=== PATIENT | male | born 1990 | race Two or more races ===

== ENCOUNTER 2018-05-13 09:07 | Emergency (ER) | payer MEDICAID, OTHER ==
[~2018-05-13] VITALS: Ht 170.2 cm; Wt 99.6 kg
[2018-05-13] MEDS ORDERED: SODIUM CHLORIDE FLUSH 10ML SYR IVF ONE (10:00)
[2018-05-13] MEDS ORDERED: SUMATRIPTAN 6MG/0.5ML SQ ONE ×2 (10:00→10:04)
[2018-05-13] MEDS ORDERED: SODIUM CHLORIDE 0.9% 1,000ML IVBOLUS ONE (10:00)
[2018-05-13] MEDS ORDERED: ONDANSETRON 2MG/ML, 2ML IVPush ONE (10:00)
[2018-05-13] MEDS ORDERED: KETOROLAC 30 MG/1 ML IVPush ONE ×2 (10:00)
[2018-05-13] MEDS ORDERED: ONDANSETRON 2MG/ML, 2ML ONE (10:04)
[2018-05-13] MEDS ORDERED: KETOROLAC 30 MG/1 ML ONE (10:04)
[2018-05-13 11:06] VITALS: BP 132/74
== END 2018-05-13 11:07 | disposition home or self-care (01) ==
LOC: ED 11:00
DX: G43.001 Migraine without aura, not intractable, with status migrainosus (principal)
CPT/HCPCS: 96372; 96374; 96375; 99284; J1885; J2405; J3030; J7030

== ENCOUNTER 2020-12-15 22:59 | Emergency (ER) | payer SELFPAY ==
[~2020-12-15] VITALS: Ht 160 cm; Wt 109.0 kg
[2020-12-15 23:09] VITALS: BP 170/99
[2020-12-15] MEDS ORDERED: LIDOCAINE-MPF 1%, 5ML ONE (23:59)
[2020-12-16] MEDS ORDERED: LIDOCAINE-MPF 1%, 5ML INFIL ONE (00:30)
[2020-12-16] MEDS ORDERED: NEOSPORIN OINT. PKT 1 PACKET ONE (01:22)
== END 2020-12-16 01:32 | disposition home or self-care (01) ==
LOC: ED 12-16 01:26
DX: S61.210A Laceration without foreign body of right index finger without damage to nail, initial encounter (principal); G43.909 Migraine, unspecified, not intractable, without status migrainosus; W26.0XXA Contact with knife, initial encounter; Y93.89 Activity, other specified; Y92.009 Unspecified place in unspecified non-institutional (private) residence as the place of occurrence of the external cause; Y99.8 Other external cause status
CPT/HCPCS: 12041; 99284